=== PATIENT | male | born 1950 | race Caucasian/White ===

== ENCOUNTER 2020-06-04 11:33 | Emergency (ER) | payer MEDICARE ==
[~2020-06-04] VITALS: Ht 172.7 cm; Wt 62.0 kg
--- NOTE | 2020-06-04 13:19 | NUR ---
Family member brought to bedside because patient is confused
[2020-06-04 14:24] LABS: BASOPHILS # (AUTO) 0.1 X10'3 (0-0.2); BASOPHILS % (AUTO) 0.9 % (0-1); EOSINOPHILS # (AUTO) 0.4 X10'3 (0-0.9); EOSINOPHILS % (AUTO) 3.5 % (0-6); HEMATOCRIT 40.3 % (42.0-52.0); LYMPHOCYTES # (AUTO) 0.9 X10'3 (1.1-4.8); LYMPHOCYTES % (AUTO) 8.1 % (21-51); MEAN CORPUSCULAR HEMOGLOBIN 34.8 PG (27.0-31.0); MEAN CORPUSCULAR HGB CONC 34.7 g/dL (33.0-36.5); MEAN CORPUSCULAR VOLUME 100.5 FL (78-98); MONOCYTES # (AUTO) 0.8 X10'3 (0-0.9); MONOCYTES % (AUTO) 6.7 % (2-12); NEUTROPHILS # (AUTO) 9.2 X10'3 (1.8-7.7); NEUTROPHILS % (AUTO) 80.8 % (42-75); PLATELET COUNT 406 X10'3 (140-440); RED BLOOD COUNT 4.01 X10'6 (4.70-6.10); WHITE BLOOD COUNT 11.3 X10'3 (4.5-11.0)
[2020-06-04 14:38] LABS: ALANINE AMINOTRANSFERASE 25 U/L (12-78); ALBUMIN 4.1 G/DL (3.4-5.0); ALBUMIN/GLOBULIN RATIO 1.1 (1.1-1.5); ALKALINE PHOSPHATASE 134 IU/L (46-116); ANION GAP 9 (8-16); ASPARTATE AMINO TRANSFERASE 15 U/L (10-37); BILIRUBIN,TOTAL 0.7 MG/DL (0.1-1.0); BLOOD UREA NITROGEN 8 MG/DL (7-18); CALCIUM 9.4 MG/DL (8.5-10.1); CHLORIDE 107 MMOL/L (99-107); CREATININE 1.15 MG/DL (0.60-1.10); GLUCOSE 98 MG/DL (70-104); POTASSIUM 3.8 MMOL/L (3.5-5.1); SODIUM 143 MMOL/L (135-145); TOTAL CARBON DIOXIDE 27.2 MMOL/L (24-32); eGFR 63 ML/MIN
[2020-06-04] MEDS ORDERED: RISP0.5T74 PO (14:58)
[2020-06-04 15:02] VITALS: BP 167/83
== END 2020-06-04 15:50 | disposition home or self-care (01) ==
LOC: EDBD 11:37 → ER 11:37
DX: F03.90 Unspecified dementia, unspecified severity, without behavioral disturbance, psychotic disturbance, mood disturbance, and anxiety (principal); R41.0 Disorientation, unspecified; Z79.899 Other long term (current) drug therapy
CPT/HCPCS: 36415; 70450; 80053; 85025; 99285

== ENCOUNTER 2020-11-19 13:11 | Emergency (ER) | payer MEDICARE ==
[~2020-11-19] VITALS: Ht 172.7 cm; Wt 72.7 kg
[~2020-11-19 13:11] MED LIST: RISP0.5T74 PO
[2020-11-19 13:30] VITALS: BP 144/90
--- NOTE | 2020-11-19 13:58 | NUR ---
Gena Miguel (caregiver) [phone]
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
[2020-11-19] MEDS ORDERED: TRAZ-251 PO (14:14)
[2020-11-19] MEDS ORDERED: DONE10TA44 PO (14:14)
[2020-11-19] MEDS ORDERED: QUET25TA34 PO (14:14)
[2020-11-19 15:17] LABS: BASOPHILS # (AUTO) 0.1 X10'3 (0-0.2); EOSINOPHILS # (AUTO) 0.3 X10'3 (0-0.9); HEMATOCRIT 40.7 % (42.0-52.0); LYMPHOCYTES % (AUTO) 17.5 % (21-51); MEAN CORPUSCULAR HEMOGLOBIN 34.5 PG (27.0-31.0); MEAN CORPUSCULAR HGB CONC 34.4 g/dL (33.0-36.5); MEAN CORPUSCULAR VOLUME 100.3 FL (78-98); MEAN PLATELET VOLUME 9.1 FL (7.4-10.4); MONOCYTES # (AUTO) 0.5 X10'3 (0-0.9); MONOCYTES % (AUTO) 8.5 % (2-12); NEUTROPHILS # (AUTO) 3.8 X10'3 (1.8-7.7); PLATELET COUNT 429 X10'3 (140-440); RED BLOOD COUNT 4.06 X10'6 (4.70-6.10); WHITE BLOOD COUNT 5.7 X10'3 (4.5-11.0)
[2020-11-19 15:22] LABS: CLARITY,URINE CLEAR (Clear); COLOR,URINE YELLOW (Yellow); GLUCOSE, URINE NEGATIVE (Neg); KETONES,URINE NEGATIVE (Neg); LEUKOCYTE ESTERASE ,URINE NEGATIVE (Neg); NITRITES, URINE NEGATIVE (Neg); OCCULT BLOOD,URINE NEGATIVE (Neg); PROTEIN,URINE NEGATIVE (Neg)
[2020-11-19 15:23] LABS: UA COLLECTION TYPE URINAL
[2020-11-19 15:28] LABS: ALANINE AMINOTRANSFERASE 26 U/L (12-78); ALBUMIN 4.2 G/DL (3.4-5.0); ALKALINE PHOSPHATASE 161 IU/L (46-116); ANION GAP 6 (8-16); ASPARTATE AMINO TRANSFERASE 16 U/L (10-37); BILIRUBIN,TOTAL 0.5 MG/DL (0.1-1.0); BLOOD UREA NITROGEN 13 MG/DL (7-18); BUN/CREATININE RATIO 10.9 (5.4-32.0); CALCIUM 9.2 MG/DL (8.5-10.1); CHLORIDE 105 MMOL/L (99-107); CREATININE 1.19 MG/DL (0.60-1.10); GLUCOSE 106 MG/DL (70-104); POTASSIUM 4.3 MMOL/L (3.5-5.1); SODIUM 140 MMOL/L (135-145); TOTAL CARBON DIOXIDE 29.2 MMOL/L (24-32); TOTAL PROTEIN 8.4 G/DL (6.4-8.2); eGFR 60 ML/MIN
[2020-11-19 15:34] LABS: URINE AMPHETAMINE SCREEN NEGATIVE (Neg); URINE BARBITUATE SCREEN NEGATIVE (Neg); URINE BENZODIAZEPINES SCREEN NEGATIVE (Neg); URINE CANNABINOID SCREEN NEGATIVE (Neg); URINE COCAINE SCREEN NEGATIVE (Neg); URINE METHADONE SCREEN NEGATIVE (Neg); URINE OPIATE SCREEN NEGATIVE (Neg); URINE PHENCYCLIDINE SCREEN NEGATIVE (Neg)
[2020-11-19 15:36] LABS: ETHANOL < 0.010 GM/DL (0.0-0.010)
--- NOTE | 2020-11-19 15:45 | NUR ---
packet faxed to [facility]
--- NOTE | 2020-11-19 18:58 | NUR ---
smh in room to evaluate.
== END 2020-11-19 20:53 | disposition home or self-care (01) ==
LOC: ER 13:11
DX: F03.91 Unspecified dementia, unspecified severity, with behavioral disturbance (principal); Z79.899 Other long term (current) drug therapy
CPT/HCPCS: 36415; 80053; 80305; 80320; 81003; 84443; 85025; 99285

== ENCOUNTER 2021-01-04 19:29 | Emergency (ER) | payer MEDICARE ==
[~2021-01-04] VITALS: Ht 167.6 cm; Wt 60.0 kg
[~2021-01-04 19:29] MED LIST changes: +DONE10TA44 PO; +QUET25TA34 PO; -RISP0.5T74 PO; +TRAZ-251 PO
--- NOTE | 2021-01-04 20:00 | NUR ---
The patient came from ER Triage on a 5150 from [place] after the officer was called to the patient's home. Mr. Casarez has a history of dementia and had become agitated and aggressive with his . The patient is unable to provide a medical history and his was called but she has not returned a call yet. The patient is ambulating without difficulty. He denies pain.
[2021-01-04 20:12] LABS: CLARITY,URINE CLEAR (Clear); COLOR,URINE YELLOW (Yellow); GLUCOSE, URINE NEGATIVE (Neg); KETONES,URINE NEGATIVE (Neg); LEUKOCYTE ESTERASE ,URINE NEGATIVE (Neg); NITRITES, URINE NEGATIVE (Neg); OCCULT BLOOD,URINE NEGATIVE (Neg); PROTEIN,URINE NEGATIVE (Neg)
[2021-01-04 20:13] LABS: BASOPHILS # (AUTO) 0.1 X10'3 (0-0.2); BASOPHILS % (AUTO) 1.1 % (0-1); EOSINOPHILS # (AUTO) 0.4 X10'3 (0-0.9); EOSINOPHILS % (AUTO) 4.8 % (0-6); HEMOGLOBIN 13.5 g/dl (14.0-17.9); LYMPHOCYTES # (AUTO) 1.1 X10'3 (1.1-4.8); LYMPHOCYTES % (AUTO) 12.1 % (21-51); MEAN CORPUSCULAR HEMOGLOBIN 33.7 PG (27.0-31.0); MEAN CORPUSCULAR HGB CONC 33.8 g/dL (33.0-36.5); MEAN CORPUSCULAR VOLUME 99.7 FL (78-98); MEAN PLATELET VOLUME 8.5 FL (7.4-10.4); MONOCYTES # (AUTO) 0.7 X10'3 (0-0.9); MONOCYTES % (AUTO) 7.8 % (2-12); NEUTROPHILS # (AUTO) 6.7 X10'3 (1.8-7.7); NEUTROPHILS % (AUTO) 74.2 % (42-75); PLATELET COUNT 375 X10'3 (140-440); RED BLOOD COUNT 4.01 X10'6 (4.70-6.10); RED CELL DISTRIBUTION WIDTH 12.7 % (11.5-14.5)
[2021-01-04 20:19] LABS: URINE AMPHETAMINE SCREEN NEGATIVE (Neg); URINE BARBITUATE SCREEN NEGATIVE (Neg); URINE BENZODIAZEPINES SCREEN NEGATIVE (Neg); URINE CANNABINOID SCREEN NEGATIVE (Neg); URINE COCAINE SCREEN NEGATIVE (Neg); URINE METHADONE SCREEN NEGATIVE (Neg); URINE OPIATE SCREEN NEGATIVE (Neg); URINE PHENCYCLIDINE SCREEN NEGATIVE (Neg)
[2021-01-04 20:26] LABS: ALANINE AMINOTRANSFERASE 30 U/L (12-78); ALKALINE PHOSPHATASE 145 IU/L (46-116); ANION GAP 11 (8-16); ASPARTATE AMINO TRANSFERASE 18 U/L (10-37); BILIRUBIN,TOTAL 0.2 MG/DL (0.1-1.0); BLOOD UREA NITROGEN 22 MG/DL (7-18); CALCIUM 9.4 MG/DL (8.5-10.1); CHLORIDE 106 MMOL/L (99-107); CREATININE 1.22 MG/DL (0.60-1.10); GLUCOSE 106 MG/DL (70-104); POTASSIUM 4.1 MMOL/L (3.5-5.1); SODIUM 142 MMOL/L (135-145); TOTAL CARBON DIOXIDE 25.2 MMOL/L (24-32); TOTAL PROTEIN 8.2 G/DL (6.4-8.2); eGFR 59 ML/MIN
--- NOTE | 2021-01-04 20:28 | NUR ---
Zach GALVAN at the bedside to interview the patient
[2021-01-04 20:30] LABS: UA COLLECTION TYPE CLN CATCH MIDSTREAM
--- NOTE | 2021-01-04 20:32 | NUR ---
One to one with the patient. He is only oriented to himself. He is currently calm and cooperative. When asked what year it was he stated, "[birth year]21. I may be a little bit off"
[2021-01-04 20:38] LABS: ETHANOL < 0.010 GM/DL (0.0-0.010)
--- NOTE | 2021-01-04 21:00 | NUR ---
The patient appears to be sleeping
--- NOTE | 2021-01-04 21:30 | NUR ---
Packet to [facility]
--- NOTE | 2021-01-04 22:46 | NUR ---
The patient appears to be sleeping
--- NOTE | 2021-01-04 23:04 | NUR ---
The patient is up to use the bathroom
--- NOTE | 2021-01-04 23:59 | NUR ---
The patient polite stating he had missed dinner. Milk and sandwhich given
--- NOTE | 2021-01-05 02:31 | NUR ---
The patient appears to be sleeping
--- NOTE | 2021-01-05 03:44 | NUR ---
The patient appears to be sleeping
[2021-01-05 05:10] VITALS: BP 123/74
--- NOTE | 2021-01-05 05:10 | NUR ---
The patient appeared to sleep well during the night but is awake now and sitting quietly at the bedside
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
[2021-01-06] MEDS ORDERED: DONE10TA7 PO (18:29)
[2021-01-06] MEDS ORDERED: QUET25TA34 PO (18:29)
[2021-01-06] MEDS ORDERED: TRAZ-251 PO (18:30)
== END 2021-01-05 11:32 | disposition home or self-care (01) ==
LOC: ER 19:29
DX: F03.91 Unspecified dementia, unspecified severity, with behavioral disturbance (principal); Z79.899 Other long term (current) drug therapy
CPT/HCPCS: 36415; 80053; 80305; 80320; 81003; 84443; 85025; 99285

== ENCOUNTER 2021-01-06 12:36 | Emergency (ER) | payer MEDICARE ==
[~2021-01-06] VITALS: Ht 172.7 cm; Wt 72.0 kg
[2021-01-06 13:21] LABS: BASOPHILS # (AUTO) 0.1 X10'3 (0-0.2); BASOPHILS % (AUTO) 0.6 % (0-1); EOSINOPHILS # (AUTO) 0.4 X10'3 (0-0.9); EOSINOPHILS % (AUTO) 4.4 % (0-6); HEMATOCRIT 43.3 % (42.0-52.0); HEMOGLOBIN 14.6 g/dl (14.0-17.9); LYMPHOCYTES % (AUTO) 11.2 % (21-51); MEAN CORPUSCULAR HGB CONC 33.8 g/dL (33.0-36.5); MEAN CORPUSCULAR VOLUME 100.9 FL (78-98); MEAN PLATELET VOLUME 8.4 FL (7.4-10.4); MONOCYTES # (AUTO) 0.6 X10'3 (0-0.9); MONOCYTES % (AUTO) 7.3 % (2-12); NEUTROPHILS # (AUTO) 6.7 X10'3 (1.8-7.7); NEUTROPHILS % (AUTO) 76.5 % (42-75); PLATELET COUNT 408 X10'3 (140-440); RED CELL DISTRIBUTION WIDTH 13.1 % (11.5-14.5); WHITE BLOOD COUNT 8.7 X10'3 (4.5-11.0)
[2021-01-06 13:36] LABS: ALANINE AMINOTRANSFERASE 31 U/L (12-78); ALBUMIN 4.4 G/DL (3.4-5.0); ALKALINE PHOSPHATASE 149 IU/L (46-116); ANION GAP 10 (8-16); ASPARTATE AMINO TRANSFERASE 16 U/L (10-37); BILIRUBIN,TOTAL 0.4 MG/DL (0.1-1.0); BLOOD UREA NITROGEN 14 MG/DL (7-18); CALCIUM 9.7 MG/DL (8.5-10.1); CHLORIDE 105 MMOL/L (99-107); CREATININE 1.17 MG/DL (0.60-1.10); GLUCOSE 105 MG/DL (70-104); POTASSIUM 4.2 MMOL/L (3.5-5.1); SODIUM 144 MMOL/L (135-145); TOTAL CARBON DIOXIDE 29.2 MMOL/L (24-32); TOTAL PROTEIN 8.9 G/DL (6.4-8.2); eGFR 62 ML/MIN
[2021-01-06 13:44] LABS: ETHANOL < 0.010 GM/DL (0.0-0.010)
--- NOTE | 2021-01-06 13:55 | NUR ---
PT CALM, READING A BOOK
--- NOTE | 2021-01-06 15:09 | NUR ---
PT RESTING ON GURNEY, CALM
--- NOTE | 2021-01-06 15:40 | NUR ---
pt standing at the door to his room, needed a urinal, given one
--- NOTE | 2021-01-06 16:21 | NUR ---
PT AMBULATED FROM ER BED 15 TO OF BED 26. PT AWAKE IN BED READING A BOOK NO NEEDS AT THIS TIME
--- NOTE | 2021-01-06 16:24 | NUR ---
PT PARTNER SHARA ARCE
--- NOTE | 2021-01-06 17:16 | NUR ---
INFORMED PT OF NEED FOR UA. HE IS NOT ABLE TO VOID AT THIS TIME. URNIAL LEFT AT BS
[2021-01-06] MEDS ORDERED: DONE10TA7 PO (18:29)
[2021-01-06] MEDS ORDERED: QUET25TA34 PO (18:29)
[2021-01-06] MEDS ORDERED: TRAZ-251 PO (18:30)
[2021-01-06 18:34] LABS: CLARITY,URINE CLEAR (Clear); COLOR,URINE YELLOW (Yellow); GLUCOSE, URINE NEGATIVE (Neg); KETONES,URINE NEGATIVE (Neg); LEUKOCYTE ESTERASE ,URINE NEGATIVE (Neg); NITRITES, URINE NEGATIVE (Neg); OCCULT BLOOD,URINE NEGATIVE (Neg); PROTEIN,URINE NEGATIVE (Neg); UA COLLECTION TYPE VOIDED; UROBILINOGEN,URINE 0.2 E.U/dL (0.2-1.0)
[2021-01-06 18:39] LABS: URINE AMPHETAMINE SCREEN NEGATIVE (Neg); URINE BARBITUATE SCREEN NEGATIVE (Neg); URINE BENZODIAZEPINES SCREEN NEGATIVE (Neg); URINE CANNABINOID SCREEN NEGATIVE (Neg); URINE COCAINE SCREEN NEGATIVE (Neg); URINE METHADONE SCREEN NEGATIVE (Neg); URINE OPIATE SCREEN NEGATIVE (Neg); URINE PHENCYCLIDINE SCREEN NEGATIVE (Neg)
--- NOTE | 2021-01-06 19:44 | NUR ---
pt is resting in bed reading. Pt was confused and unable to find words to answer simple questions. pt is friendly and cooperative for all assessments and care.
[2021-01-06] MEDS: QUEtiapine 25mg tablet PO SCH (20:07)
[2021-01-06] MEDS: donepezil 5mg tablet PO SCH (20:07)
[2021-01-06] MEDS ORDERED: traZODone 50mg tablet PO SCH (21:00)
--- NOTE | 2021-01-06 21:03 | NUR ---
pt is sitting on bed staring, no s/s distress noted.
--- NOTE | 2021-01-07 00:11 | NUR ---
pt is lying in bed after getting up for restroom. gait steady, no concerns at this time.
--- NOTE | 2021-01-07 01:46 | NUR ---
pt continues to sleep, no s/s of distress noted.
--- NOTE | 2021-01-07 04:21 | NUR ---
pt continues to sleep, rr unlabored, no s/s of distress noted.
--- NOTE | 2021-01-07 06:45 | NUR ---
Patient is lying in bed reading a book. No S/S of distress noted.
[2021-01-07] MEDS: QUEtiapine 25mg tablet PO SCH (08:32)
[2021-01-07] MEDS: donepezil 5mg tablet PO SCH (08:33)
--- NOTE | 2021-01-07 09:49 | NUR ---
[facility] here to evaluate patient. Patient is released from his hold and will be discharging into [facility]. Patient is up and friendly talking with staff and peer.
--- NOTE | 2021-01-07 12:07 | NUR ---
Attempted to call Gena for patient pickup, no answer. Patient sleeping in bed at this time.
[2021-01-07 13:30] VITALS: BP 145/88
== END 2021-01-07 13:33 | disposition home or self-care (01) ==
LOC: ER 12:36
DX: F03.91 Unspecified dementia, unspecified severity, with behavioral disturbance (principal); Z79.899 Other long term (current) drug therapy
CPT/HCPCS: 36415; 80053; 80305; 80320; 81003; 84443; 85025; 99285